=== PATIENT | male | born 1975 | race Hispanic/Latino ===

== ENCOUNTER 2017-12-04 12:07 | Outpatient (CLI) | payer OTHER ==
--- NOTE | 2017-12-04 14:22 | RAD ---
THREE VIEWS THORACIC SPINE 12/04/17 HISTORY: Disability evaluation. Muscular dystrophy. COMPARISON: None available. FINDINGS: The vertebral body heights are within normal limits. A few minimal scattered osteophytes are seen. Th ere is no fracture or subluxation involving the lumbar spine. There are bibasilar parenchymal lung ch anges present but this exam is obtained with a shallow depth of inspiration and findings are probably related to atelectasis. There is mild elevation of the right hemidiaphragm. Pneumonia in either lung base could not be excluded based on this exam, but this would be better evaluated with chest x-ray. IMPRESSION: 1. Minimal degenerative changes in the thoracic spine. No acute osseous abnormality seen. 2. Bibasilar parenchymal opacities most likely related to atelectasis. Pneumonia could not be en tirely excluded. POS: NISH
== END 2017-12-04 12:08 | disposition home or self-care (01) ==
LOC: NAV RAD 12:07
PROVIDERS: ATTEND Family Medicine
DX: Z02.71 Encounter for disability determination (principal); G71.0 Muscular dystrophy; M47.894 Other spondylosis, thoracic region; R91.8 Other nonspecific abnormal finding of lung field
CPT/HCPCS: 72072